=== PATIENT | female | born 1980 | race Caucasian/White ===

== ENCOUNTER 2017-08-17 00:02 | Emergency (ER) | payer SELFPAY ==
[~2017-08-17] VITALS: Ht 165.1 cm; Wt 59.0 kg
[2017-08-17 00:22] VITALS: BP 125/76; Ht 165.1 cm; Wt 59.0 kg
== END 2017-08-17 07:31 | disposition left against medical advice (07) ==
LOC: ED 00:02
DX: Z53.21 Procedure and treatment not carried out due to patient leaving prior to being seen by health care provider (principal)